=== PATIENT | female | born 1955 | race Caucasian/White ===

== ENCOUNTER 2016-03-30 16:00 | Outpatient (CLI) | payer OTHER | END 2016-03-30 16:02 | LOC: LABRHC 16:00 | PROVIDERS: ATTEND Family Medicine | DX: R30.0 Dysuria (principal) | CPT/HCPCS: 87088 ==

== ENCOUNTER 2016-05-25 09:56 | Outpatient (CLI) | payer OTHER ==
[2016-05-25 10:52] LABS: eGFR (African) > 60; eGFR (Non-African) > 60
== END 2016-05-25 09:57 ==
LOC: LAB 09:56
PROVIDERS: ATTEND Family Medicine
DX: E78.2 Mixed hyperlipidemia (principal); E11.9 Type 2 diabetes mellitus without complications; E03.9 Hypothyroidism, unspecified
CPT/HCPCS: 36415; 80053; 80061; 83036; 84443

== ENCOUNTER → 2016-09-30 | Outpatient (CLI) | payer OTHER | LOC: LAB 10:31 | PROVIDERS: ATTEND Family Medicine | DX: E11.9 Type 2 diabetes mellitus without complications (principal) | CPT/HCPCS: 36415; 82043; 83036 ==

== ENCOUNTER 2017-02-06 07:35 | Outpatient (CLI) | payer OTHER | END 2017-02-06 07:45 | LOC: LAB 07:35 | PROVIDERS: ATTEND Family Medicine | DX: E11.9 Type 2 diabetes mellitus without complications (principal) | CPT/HCPCS: 36415; 83036 ==

== ENCOUNTER 2017-05-31 07:23 | Outpatient (CLI) | payer OTHER ==
[2017-05-31 08:21] LABS: eGFR (African) > 60; eGFR (Non-African) > 60
== END 2017-05-31 09:29 ==
LOC: LAB 07:23
PROVIDERS: ATTEND Family Medicine
DX: E11.9 Type 2 diabetes mellitus without complications (principal); E03.9 Hypothyroidism, unspecified
CPT/HCPCS: 36415; 80053; 80061; 82043; 83036; 84443

== ENCOUNTER 2017-09-01 08:19 | Outpatient (CLI) | payer OTHER | END 2017-09-01 08:20 | LOC: LAB 08:19 | PROVIDERS: ATTEND Family Medicine | DX: E11.9 Type 2 diabetes mellitus without complications (principal) | CPT/HCPCS: 36415; 83036 ==

== ENCOUNTER 2018-01-05 13:25 | Outpatient (CLI) | payer OTHER | END 2018-01-05 13:26 | LOC: LAB 13:25 | PROVIDERS: ATTEND Family Medicine | DX: E11.9 Type 2 diabetes mellitus without complications (principal) | CPT/HCPCS: 36415; 83036 ==

== ENCOUNTER 2018-05-04 07:19 | Outpatient (CLI) | payer OTHER ==
[2018-05-04 08:01] LABS: eGFR (Non-African) > 60
== END 2018-05-04 07:21 ==
LOC: LAB 07:19
PROVIDERS: ATTEND Family Medicine
DX: E11.9 Type 2 diabetes mellitus without complications (principal); E03.9 Hypothyroidism, unspecified
CPT/HCPCS: 36415; 80053; 80061; 83036; 84443

== ENCOUNTER 2018-09-19 07:52 | Outpatient (CLI) | payer OTHER | END 2018-09-19 07:54 | LOC: LAB 07:52 | PROVIDERS: ATTEND Family Medicine | DX: E11.9 Type 2 diabetes mellitus without complications (principal) | CPT/HCPCS: 36415; 83036 ==

== ENCOUNTER 2019-01-14 07:46 | Outpatient (CLI) | payer OTHER ==
[2019-01-14 08:14] LABS: A1C 6.1 % (<5.7)
[2019-01-14 09:28] LABS: TSH 3.57 mIU/l (0.465-4.685)
== END 2019-01-14 07:51 ==
LOC: LAB 07:46
PROVIDERS: ATTEND Family Medicine
DX: E03.9 Hypothyroidism, unspecified (principal); E11.9 Type 2 diabetes mellitus without complications
CPT/HCPCS: 36415; 83036; 84443